=== PATIENT | female | born 1990 | race Two or more races ===

== ENCOUNTER 2024-12-30 23:39 | Emergency (ER) | payer OTHER ==
[~2024-12-30] VITALS: Ht 165.1 cm; Wt 65.8 kg
[2024-12-31] MEDS ORDERED: CYMBALTA60 MG PO (00:03)
[2024-12-31] MEDS ORDERED: KETOROLAC TROMETHAMINE 60 MG VIAL IM STA (02:09)
[2024-12-31] MEDS ORDERED: KETOROLAC TROMETHAMINE 60 MG VIAL IM ONE (02:22)
== END 2024-12-31 03:52 ==
LOC: ER 12-31 00:06
DX: G89.11 Acute pain due to trauma (principal); R51.9 Headache, unspecified; M25.559 Pain in unspecified hip; M54.2 Cervicalgia; M54.59 Other low back pain